=== PATIENT | female | born 2000 | race Caucasian/White ===

== ENCOUNTER → 2024-05-11 16:20 | Outpatient (CLI) | payer OTHER, SELFPAY ==
--- NOTE | 2024-05-11 16:22 | DI.US.S_ITS ---
PROCEDURE: US OB <= 14 WEEKS FETUS INDICATIONS: Dating and viability, irregular menses OUTSIDE/PRIOR DATING DATA: Last menstrual period (LMP): 02/28/2024 LMP-based estimated date of delivery (JODY): 12/04/2024. First dating scan (date and location): 05/11/2024. Estimated date of delivery (JODY) from first dating scan: 12/08/2024. TECHNIQUE: Real-time scanning was performed of the fetus and maternal pelvic organs, with image documentation. COMPARISON: None. FINDINGS: Embryo: pole is identified with crown-rump length measuring 3.0 centimeters, consistent with 9 weeks and 6 days. Heart rate: 171 beats per minute Maternal organs: Right ovary is normal in appearance. Left ovary is not well seen. IMPRESSION: Single live intrauterine consistent with 9 weeks and 6 days. We strive to produce accurate, complete, and clear reports of imaging services. To assist us in improving patient care, this report was composed using standard report templates and voice recognition software. Therefore, it may contain abnormal punctuation, insertions and/or omissions. Occasional wrong-word or sound-alike substitutions may occur. Though we review the report and make efforts to correct it, we do recommend that the report be read carefully in proper context to recognize any text inaccuracies. Dictated by: Ritchie Ayala M.D. on 05/11/2024 at 17:01 Approved by: Ritchie Ayala M.D. on 05/11/2024 at 17:03
== END ==
PROVIDERS: Referring Provider Family Medicine; Visit Provider Family Medicine
DX: Z34.81 Encounter for supervision of other normal pregnancy, first trimester (principal); Z3A.09 9 weeks gestation of pregnancy
CPT/HCPCS: 76801

== ENCOUNTER → 2024-05-27 12:51 | Outpatient (CLI) | payer OTHER, SELFPAY ==
[2024-05-27 13:27] LABS: Add Manual Diff / Slide Review NO; Basophils Absolute Auto 0 /uL (0-100); Basophils Percent Auto 0.4 % (0-2); Eosinophils Absolute Auto 0 /uL (0-450); Eosinophils Percent Auto 0.3 % (2-4); Hematocrit 37.5 % (36-46); Hemoglobin 13.1 g/dL (12.0-16.0); Lymphocytes Absolute Auto 1800 /uL (1100-4500); Lymphocytes Percent Auto 17.4 % (25-40); Mean Corpuscular HGB Conc 34.8 % (30-36); Mean Corpuscular Hemoglobin 28.7 PG (26-34); Mean Corpuscular Volume 82.6 fL (80-100); Monocytes Absolute Auto 600 /uL (0-900); Monocytes Percent Auto 5.5 % (3-14); Neutrophils Absolute Auto 7700 /uL (1500-7000); Neutrophils Percent Auto 76.4 % (50-75); Platelet Count 287 X10^3/uL (150-400); Red Blood Cell Count 4.54 X10^6/uL (4.0-5.2); Red Cell Distribution Width 13.7 % (11.6-14.8); White Blood Cell Count 10.1 X10^3/uL (4.5-11.0)
[2024-05-27 13:36] LABS: Hemoglobin A1C% w Est Avg Glu 4.8 % (4.0-6.0)
[2024-05-27 13:51] LABS: Appearance Urine UA CLEAR; Bilirubin Urine UA NEGATIVE (NEGATIVE); Color Urine UA YELLOW; Glucose Urine UA NEGATIVE (Negative); Ketones Urine UA TRACE (NEGATIVE); Leukocyte Esterase Urine UA NEGATIVE (NEGATIVE); Nitrite Urine UA NEGATIVE (Negative); Occult Blood Urine UA TRACE-INTACT (Negative); Protein Urine UA NEGATIVE (Negative); Specific Gravity Urine UA >=1.030 (1.000-1.035); Urobilinogen Urine UA 0.2 E.U./dL (0.2)
[2024-05-27 13:54] LABS: Alanine Aminotransferase 22 IU/L (<35); Albumin 4.2 g/dL (3.5-5.0); Albumin Globulin Ratio 1.4 (1.0-2.8); Alkaline Phosphatase 52 U/L (38-126); Aspartate Aminotransferase 53 IU/L (14-36); BUN Creatinine Ratio 30.3 (6-22); Bilirubin Total 0.7 mg/dL (0.2-1.3); Blood Urea Nitrogen 10 mg/dL (7-17); Calcium 9.7 mg/dL (8.4-10.2); Carbon Dioxide 22 mmol/L (22-32); Chloride 104 mmol/L (98-107); Estimated Glomerular Filt Rate > 60 mL/min (>60); Glucose 113 mg/dL (70-100); Potassium 4.1 mmol/L (3.4-5.1); Sodium 133 mmol/L (137-145); Total Protein 7.2 g/dL (6.3-8.2)
[2024-05-27 13:55] LABS: HEMOLYSIS 90 (0-50)
[2024-05-27 13:57] LABS: pH Urine UA 5.5 (4.5-8.0)
[2024-05-28 06:36] LABS: RPR Screen Non Reactive (Non Reactive)
[2024-05-28 08:11] LABS: Varicella IgG Antibody Non Reactive (Non Reactive)
[2024-05-30 15:47] LABS: Hepatitis B Surface Antigen NEGATIVE s/c (NEGATIVE); Rubella Antibody IgG 69.3 IU/mL (>15)
[2024-05-30 16:10] LABS: HIV 1 & 2 Ab/Ag 4th Gen Combo NEGATIVE (NEGATIVE); Hep C Virus Ab w/Reflex Quant NEGATIVE s/c (NEGATIVE)
== END ==
LOC: LAB 12:52
PROVIDERS: Referring Provider Family Medicine; Visit Provider Family Medicine
DX: O99.210 Obesity complicating pregnancy, unspecified trimester (principal); R79.89 Other specified abnormal findings of blood chemistry; E28.2 Polycystic ovarian syndrome; Z3A.12 12 weeks gestation of pregnancy; E66.9 Obesity, unspecified
CPT/HCPCS: 36415; 80053; 80055; 81003; 83036; 86787; 86803; 86850; 86900; 86901; 87086; 87389

== ENCOUNTER → 2024-07-22 13:36 | Outpatient (CLI) | payer OTHER, SELFPAY ==
--- NOTE | 2024-07-22 13:36 | DI.US.S_ITS ---
PROCEDURE: US OB >= 14 WEEKS FETUS INDICATIONS: growth OUTSIDE/PRIOR DATING DATA: Last menstrual period (LMP): 02/18/24. LMP-based estimated date of delivery (JODY): 12/04/24. First dating scan (date and location): 05/11/24. Estimated date of delivery (JODY) from first dating scan: 12/08/24. The calculations are made using the working JODY of 12/04/24. TECHNIQUE: Real-time scanning was performed of the fetus, with image documentation and biometric measurements. Endovaginal scanning: No COMPARISON: None. FINDINGS: General: A single living intrauterine gestation is present. Presentation: Breech. Placenta: Placental position is anterior , without previa. Amniotic fluid index: 13.1 cm, normal range is 5-24 cm. Single deepest vertical pocket is 4.5 cm. heart rate: 144 beats per minute. Maternal cervical canal: Closed and 3.4 cm long. Normal lower limit is 2.5 cm. biometrics: Biparietal diameter: 5.0 cm, 21 weeks one day Head circumference: 18.2 cm, 20 weeks four days Abdominal circumference: 16.0 cm, 21 weeks one day Femur length: 3.1 cm, 19 weeks five days Clinically estimated gestational age: 20 weeks five days Composite gestational age from present scan: 20 weeks five days Estimated weight and percentile: 358 g, 34th percentile Anatomic survey: Neuro: Ventricles are non-dilated at less than 10 mm. Cisterna magna is normal at 3-11 mm. Cerebellum is normal in size and morphology. Nuchal skin fold: Normal at less than 6 mm between 14-21 weeks gestational age. Face: Nose and lips, facial profile are normal. Spine: No evidence for spina bifida. Heart: 4-chambered heart is present, with normal ventricular outflow tracts. Diaphragm: Diaphragm is intact. Stomach: Left-sided stomach is present. Kidneys: No hydronephrosis. Normal is less than 5 mm in 2nd trimester, less than 7 mm in 3rd trimester. Cord: 3-vessel cord has orthotopic insertion. Bladder: Normal in size. Extremities: All 4 extremities identified. IMPRESSION: Single live intrauterine with estimated weight at the 34th percentile. Symmetric growth and normal anatomy. Anterior placenta. Closed cervix and normal amniotic fluid volume. We strive to produce accurate, complete, and clear reports of imaging services. To assist us in improving patient care, this report was composed using standard report templates and voice recognition software. Therefore, it may contain abnormal punctuation, insertions and/or omissions. Occasional wrong-word or sound-alike substitutions may occur. Though we review the report and make efforts to correct it, we do recommend that the report be read carefully in proper context to recognize any text inaccuracies. Dictated by: Kenzie Frye M.D. on 07/22/2024 at 22:10 Approved by: Kenzie Frye M.D. on 07/22/2024 at 22:13
== END ==
PROVIDERS: Referring Provider Family Medicine; Visit Provider Family Medicine
DX: O43.892 Other placental disorders, second trimester (principal); Z3A.20 20 weeks gestation of pregnancy
CPT/HCPCS: 76811

== ENCOUNTER → 2024-08-12 16:28 | Outpatient (CLI) | payer OTHER, SELFPAY ==
[2024-08-12 18:13] LABS: Hematocrit 34.8 % (36-46); Hemoglobin 11.7 g/dL (12.0-16.0); Mean Corpuscular HGB Conc 33.6 % (30-36); Mean Corpuscular Hemoglobin 28.6 PG (26-34); Mean Corpuscular Volume 85.1 fL (80-100); Platelet Count 260 X10^3/uL (150-400); Red Blood Cell Count 4.09 X10^6/uL (4.0-5.2); White Blood Cell Count 11.3 X10^3/uL (4.5-11.0)
[2024-08-12 18:27] LABS: GTT (PREG) 1 Hour PP 50gm Dose 169 mg/dL (76-139)
== END ==
LOC: LAB 16:29
PROVIDERS: Referring Provider Family Medicine; Visit Provider Family Medicine
DX: Z34.80 Encounter for supervision of other normal pregnancy, unspecified trimester (principal)
CPT/HCPCS: 36415; 82950; 85027

== ENCOUNTER 2024-08-28 09:14 | Emergency (ER) | payer OTHER, SELFPAY ==
[2024-08-28] VITALS (13 sets, daily range): BP systolic 108–120; BP diastolic 52–58; PULSE 109–132; RESP 20; TEMP 37.8; O2SAT 91–97; BMI 43.0
[2024-08-28] MEDS: ONDANSETRON 4 MG/2 ML INJ IV (09:52)
[2024-08-28] MEDS: ACETAMINOPHEN IV 1,000 MG/100 ML VIAL 400 MG IV (09:53)
[2024-08-28] MEDS: SODIUM CHLORIDE 0.9% 1,000 ML 1000 ML IV (09:53)
[2024-08-28 10:01] LABS: Add Manual Diff / Slide Review NO; Basophils Absolute Auto 0 /uL (0-100); Basophils Percent Auto 0.4 % (0-2); Eosinophils Absolute Auto 0 /uL (0-450); Hematocrit 34.1 % (36-46); Hemoglobin 11.6 g/dL (12.0-16.0); Lymphocytes Absolute Auto 300 /uL (1100-4500); Lymphocytes Percent Auto 3.3 % (25-40); Mean Corpuscular HGB Conc 34.1 % (30-36); Mean Corpuscular Hemoglobin 28.9 PG (26-34); Mean Corpuscular Volume 84.7 fL (80-100); Monocytes Absolute Auto 300 /uL (0-900); Neutrophils Absolute Auto 9200 /uL (1500-7000); Neutrophils Percent Auto 93.3 % (50-75); Platelet Count 210 X10^3/uL (150-400); Red Blood Cell Count 4.02 X10^6/uL (4.0-5.2); Red Cell Distribution Width 14.1 % (11.6-14.8); White Blood Cell Count 9.9 X10^3/uL (4.5-11.0)
--- NOTE | 2024-08-28 10:07 | ED.NAVMDI ---
HPI - Nausea/Vomiting/Diarrhea General Chief complaint: Nausea/Vomiting/Diarrhea Stated complaint: vomiting, can't keep anything down Time Seen by Provider: 08/28/24 09:49 History of Present Illness HPI Narrative: Patient is a 24-year-old female currently 26 weeks presenting today with fever body aches back pain vomiting. She reports that she has been throwing up for the last 2 days. She has had fever 101. She currently has a temp of 100?. 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 Denies any sort of vaginal bleeding but does have some pelvic floor pressure. Related Data Home Medications Medication Instructions Recorded Confirmed vitamin-ferrous sulfate tab PO 05/23/24 08/26/24 27 mg iron-folic acid 0.8 mg tablet Previous Rx's Medication Instructions Recorded cephalexin 500 mg capsule 500 mg PO BID 5 days #10 caps 08/28/24 ondansetron 4 mg disintegrating 4 mg PO Q8H PRN nausea and 08/28/24 tablet vomiting #10 tabs Allergies Allergy/AdvReac Type Severity Reaction Status Date / Time amoxicillin [AMOXICILLIN] Allergy Unknown Rash Verified 08/26/24 16:28 Patient History Medical History Leg fracture (~2004) Surgical History History of removal of skin mole [place] teeth extracted History of hand surgery History of appendectomy Family History Grandmother Breast cancer Brain cancer Lung cancer Diabetes mellitus Hypertension Heavy smoker Mother Hypertension Thyroid disease Menorrhagia Aunt Degenerative disc disease Hypertension Autoimmune disease Grandmother Breast cancer Grandfather Alzheimer's disease Father Hypertension Brother Asthma Brother Psoriasis Social History marital status: unmarried,living together number of children: 0 household members: significant other lives independently: Yes caregiver/support person: No housing: house pets and animals: No education level: college occupational status: employed current occupational exposures/hazards: No special pam needs: No travel history: over 6 months ago seatbelt use: always water heater temp set < 120 deg: Yes working smoke detector in home: Yes fire extinguisher in home: Yes carbon monox detector in home: Yes firearms in home: No do you feel safe at home: Yes Smoking Status: Never smoker second hand exposure: Yes (s/o vapes outside the house) alcohol intake: former substance use type: other during the past year weight has: other well-balanced diet: about half the time daily servings fruits/ve-4 caffeine: Yes (aware of 200mg limit) Type(s) of exercise: walking Smoking Status: Never smoker Exam Initial Vital Signs Initial Vital Signs: Vital Signs Temperature 100.1 F H 08/28/24 09:25 Pulse Rate 132 H 08/28/24 09:25 Respiratory Rate 20 08/28/24 09:25 Blood Pressure 108/57 L 08/28/24 09:25 Pulse Oximetry 95 08/28/24 09:25 Oxygen Delivery Method Room Air 08/28/24 09:25 GENERAL: Alert 24-year-old female and in no acute distress. HEENT: Head atraumatic,EOMI, pupils reactive, face symmetric, moist mucous membranes CARDIOVASCULAR: Regular rate and rhythm without murmurs, rubs or gallops. RESPIRATORY: Breath sounds equal bilaterally, no wheezes rales or rhonchi. ABDOMEN: Soft, nontender. Normoactive bowel sounds all 4 quadrants. No guarding or rebound. EXTREMITIES: Normal range of motion, no clubbing or edema. Neurovascularly intact NEUROLOGICAL: Alert and oriented x4.Normal gait and speech. Cranial nerves II through XII grossly intact. SKIN: Warm, dry, no laceration, no petechiae, no rashes or lesions. Course Orders Ordered: ED Orders 08/28/24 09:30 Covid-19 + FLU A/B + RSV - PCR Stat 08/28/24 09:45 CBC Auto Diff [Complete Blood Count AUTO DIFF] Stat CMP [Comprehensive Metabolic Panel] Stat Lactate (Lactic Acid) Stat 08/28/24 10:35 US OB limited Stat 08/28/24 11:31 Urine Culture Stat Urine Microscopic Stat Discontinued Medications Cephalexin HCl (Cephalexin 250 Mg Capsule) 500 mg PO NOW ONE Stop: 08/28/24 13:01 Last Admin: 08/28/24 13:10 Dose: 500 mg Documented By: ANNA Sodium Chloride (Normal Saline 0.9%) 1,000 mls @ 1,000 mls/hr IV BOLUS ONE Stop: 08/28/24 10:34 Last Infusion: 08/28/24 12:09 Dose: Infused Documented By: Admin: 08/28/24 09:53 Dose: 1,000 mls/hr Documented By: ANNA Acetaminophen (Ofirmev) 1,000 mg in 100 mls @ 400 mls/hr IV NOW ONE Stop: 08/28/24 09:49 Last Infusion: 08/28/24 10:38 Dose: Infused Documented By: Admin: 08/28/24 09:53 Dose: 400 mls/hr Documented By: ANNA Lactated Ringer's (Lactated Ringers) 1,000 mls @ 1,000 mls/hr IV BOLUS ONE Stop: 08/28/24 12:52 Last Infusion: 08/28/24 13:17 Dose: Infused Documented By: Admin: 08/28/24 12:09 Dose: 1,000 mls/hr Documented By: GUEVARA Ondansetron HCl (Ondansetron 4 Mg/2 Ml Inj) 4 mg IV NOW ONE Stop: 08/28/24 09:36 Last Admin: 08/28/24 09:52 Dose: 4 mg Documented By: ANNA Vital Signs Vital signs: Vital Signs - 8 hr 08/28/24 09:25 08/28/24 09:32 08/28/24 09:33 Temperature 100.1 F H Pulse Rate 132 H 129 H Respiratory Rate 20 Blood Pressure 108/57 L 118/57 L Pulse Oximetry 95 93 Oxygen Delivery Method Room Air 08/28/24 09:33 08/28/24 10:00 08/28/24 10:00 Temperature Pulse Rate 125 H 124 H Respiratory Rate Blood Pressure 117/53 L Pulse Oximetry 95 93 Oxygen Delivery Method 08/28/24 10:30 08/28/24 10:30 08/28/24 11:15 Temperature Pulse Rate 118 H Respiratory Rate Blood Pressure 110/52 L Pulse Oximetry 91 94 Oxygen Delivery Method 08/28/24 11:16 08/28/24 11:16 08/28/24 11:30 Temperature Pulse Rate 122 H 113 H Respiratory Rate Blood Pressure 113/55 L Pulse Oximetry 93 94 Oxygen Delivery Method 08/28/24 11:30 08/28/24 12:00 08/28/24 12:13 Temperature Pulse Rate 117 H Respiratory Rate Blood Pressure 113/58 L 114/55 L Pulse Oximetry 92 Oxygen Delivery Method 08/28/24 12:13 08/28/24 12:30 08/28/24 12:30 Temperature Pulse Rate 113 H 109 H Respiratory Rate Blood Pressure 120/57 L Pulse Oximetry 95 95 Oxygen Delivery Method 08/28/24 13:00 08/28/24 13:10 08/28/24 13:10 Temperature Pulse Rate 109 H 112 H Respiratory Rate Blood Pressure 109/53 L Pulse Oximetry 96 97 Oxygen Delivery Method MDM - Nausea/Vomiting/Diarrhea Lab Data 08/28/24 09:45 08/28/24 09:45 Labs: Lab Results 08/28/24 08/28/24 08/28/24 Range/Units 09:30 09:45 11:31 WBC 9.9 (4.5-11.0) X10^3/uL RBC 4.02 (4.0-5.2) X10^6/uL Hgb 11.6 L (12.0-16.0) g/dL Hct 34.1 L (36-46) % MCV 84.7 (80-100) fL MCH 28.9 (26-34) PG MCHC 34.1 (30-36) % RDW 14.1 (11.6-14.8) % Plt Count 210 (150-400) X10^3/uL Neut % (Auto) 93.3 H (50-75) % Lymph % (Auto) 3.3 L (25-40) % [place] % (Auto) 3.0 (3-14) % Eos % (Auto) 0.0 L (2-4) % Baso % (Auto) 0.4 (0-2) % Neut # (Auto) 9200 H (7776-9350) /uL Lymph # (Auto) 300 L (6205-8750) /uL [place] # (Auto) 300 (0-900) /uL Eos # (Auto) 0 (0-450) /uL Baso # (Auto) 0 (0-100) /uL Sodium 130 L (137-145) mmol/L Potassium 3.4 (3.4-5.1) mmol/L Chloride 103 (98-107) mmol/L Carbon Dioxide 16 L (22-32) mmol/L BUN 4 L (7-17) mg/dL Creatinine 0.32 L (0.52-1.04) mg/dL Estimated GFR > 60 (>60) mL/min BUN/Creatinine Ratio 12.5 (6-22) Glucose 115 H (70-100) mg/dL Lactate 0.9 (0.7-2.1) mmol/L Calcium 8.9 (8.4-10.2) mg/dL Total Bilirubin 0.7 (0.2-1.3) mg/dL AST 32 (14-36) IU/L ALT 20 (<35) IU/L Alkaline Phosphatase 53 (38-126) U/L Total Protein 6.9 (6.3-8.2) g/dL Albumin 3.7 (3.5-5.0) g/dL Globulin 3.2 (1.7-4.1) g/dL Albumin/Globulin Ratio 1.2 (1.0-2.8) Urine RBC 0-1/hpf (0-5/HPF) Urine WBC 1-5/hpf (0-5/HPF) Ur Squamous Epith Cells 0-1 /hpf (0-5/HPF) Urine Bacteria Moderate (10-30) H (None) Urine Mucus 1+ H (Negative) Ur Culture Indicated? Specimen cultured Vol Urine Centrifuged 10ml (spun) SARS-CoV-2 (PCR) Negative (Negative) Influenza A (RT-PCR) Flu a positive H (NEGATIVE) Influenza B (RT-PCR) Flu b negative (NEGATIVE) RSV (PCR) Negative (Negative) Urine Dip Bedside Urine Glucose Negative Bedside Urine Bilirubin - Negative Bedside Urine Ketone +++ 80 Urine Specific [place] 1.030 Bedside Urine Occult Blood - Negative Bedside Urine pH 6.0 Bedside Urine Protein + 30 Bedside Urine Urobilinogen - Negative Bedside Urine Nitrite - Negative Bedside Urine Leukocytes - Negative Esterase Imaging Data US - OB: Radiologist's Impression: PROCEDURE: US OB LIMITED INDICATIONS: pain 26 weeks OUTSIDE/PRIOR DATING DATA: Last menstrual period (LMP): February 28, 2024. LMP-based estimated date of delivery (JODY): December 04, 2024. First dating scan (date and location): May 11, 2024. Estimated date of delivery (JODY) from first dating scan: December 08, 2024. TECHNIQUE: Real-time scanning was performed of the fetus, with image documentation. Endovaginal scanning: Not performed COMPARISON: [facility], US, US OB >= 14 WEEKS FETUS, 07/22/2024, 13:48. FINDINGS: A single living intrauterine gestation is present. Presentation: Vertex. Placenta: Placental position is anterior, without previa. Amniotic fluid index: 14.4 cm, normal range is 5-24 cm. Single deepest vertical pocket is 5.6 cm. heart rate: 160 beats per minute. Maternal cervical canal: 3.3 cm long. Normal lower limit is 2.5 cm. Clinically estimated gestational age: 26 weeks and 0 days IMPRESSION: Single living intrauterine gestation at approximately 26 weeks and 0 days gestational age. No sonographic abnormalities identified to explain patient's symptoms. Dictated by: Kyler Jade M.D. on 08/28/2024 at 11:23 MDM Narrative Medical decision making narrative: Patient 24-year-old female presenting today with nausea vomiting abdominal pain and back pain. She was found to be tachycardic with low-grade temp of 100?. OB nurse in ED to do heart tones states that patient not a candidate for NST. Blood work reviewed she was no leukocytosis WBCs 9.9 hemoglobin 11 point hematocrit 34.1 Chemistry panel does suggest some mild dehydration sodium is 130 potassium 3.4 chloride 103 bicarb is 16 BUN 4 creatinine 0.3 Lactate 0.9 Urinalysis negative for nitrates and leukocytes but does have 30+ protein micro does show moderate bacteria with 0-1 squamous cells and 1-5 WBCs, Patient is not hypertensive no evidence of preeclampsia except for proteinuria Viral panel positive for influenza Patient received 2 L of IV fluids along with IV Tylenol overall feeling much better. She has been ambulatory to the restroom Ultrasound is overall reassuring shows an IUP Discharge Plan Departure Patient Disposition: Home Clinical Impression: Influenza A Instructions: DI for Influenza -- Adult Activity Restrictions/Additional Instructions: *You have been diagnosed with influenza a *What to do: You may also have a bladder infection go ahead and treat you *Continue to take medications as directed Keflex 500 mg twice a day for 5 days Tylenol 1000 mg every 6 hours for fever and pain Zofran 4 mg every 8 hours for nausea or vomiting *Follow up with your primary care provider in 2-3 days or call [phone] *Return to ER if you should have persistent vomiting [or] any new, worsening or concerning symptoms Prescriptions: New cephalexin 500 mg capsule 500 mg PO BID 5 Days Qty: 10 0RF ondansetron 4 mg tablet,disintegrating 4 mg PO Q8H PRN (Reason: nausea and vomiting) Qty: 10 0RF No Action vit-ferrous sulfat-FA 27 mg iron- 0.8 mg tablet PO Referrals: Tomasa Zaidi MD [Primary Care Provider] - Stand Alone Forms: Patient Portal/API/Survey
[2024-08-28 10:12] LABS: Alanine Aminotransferase 20 IU/L (<35); Albumin 3.7 g/dL (3.5-5.0); Albumin Globulin Ratio 1.2 (1.0-2.8); Alkaline Phosphatase 53 U/L (38-126); Aspartate Aminotransferase 32 IU/L (14-36); BUN Creatinine Ratio 12.5 (6-22); Bilirubin Total 0.7 mg/dL (0.2-1.3); Blood Urea Nitrogen 4 mg/dL (7-17); Calcium 8.9 mg/dL (8.4-10.2); Carbon Dioxide 16 mmol/L (22-32); Chloride 103 mmol/L (98-107); Estimated Glomerular Filt Rate > 60 mL/min (>60); Globulin 3.2 g/dL (1.7-4.1); Glucose 115 mg/dL (70-100); HEMOLYSIS < 15 (0-50); Potassium 3.4 mmol/L (3.4-5.1); Sodium 130 mmol/L (137-145); Total Protein 6.9 g/dL (6.3-8.2)
[2024-08-28 10:13] LABS: Lactate (Lactic Acid) 0.9 mmol/L (0.7-2.1)
--- NOTE | 2024-08-28 10:35 | DI.US.S_ITS ---
PROCEDURE: US OB LIMITED INDICATIONS: pain 26 weeks OUTSIDE/PRIOR DATING DATA: Last menstrual period (LMP): February 28, 2024. LMP-based estimated date of delivery (JODY): December 04, 2024. First dating scan (date and location): May 11, 2024. Estimated date of delivery (JODY) from first dating scan: December 08, 2024. TECHNIQUE: Real-time scanning was performed of the fetus, with image documentation. Endovaginal scanning: Not performed COMPARISON: [facility], OB >= 14 WEEKS FETUS, 07/22/2024, 13:48. FINDINGS: A single living intrauterine gestation is present. Presentation: Vertex. Placenta: Placental position is anterior, without previa. Amniotic fluid index: 14.4 cm, normal range is 5-24 cm. Single deepest vertical pocket is 5.6 cm. heart rate: 160 beats per minute. Maternal cervical canal: 3.3 cm long. Normal lower limit is 2.5 cm. Clinically estimated gestational age: 26 weeks and 0 days IMPRESSION: Single living intrauterine gestation at approximately 26 weeks and 0 days gestational age. No sonographic abnormalities identified to explain patient's symptoms. Dictated by: Kyler Jade M.D. on 08/28/2024 at 11:23 Approved by: Kyler Jade M.D. on 08/28/2024 at 11:26
[2024-08-28 10:37] LABS: Influenza A - CEPHEID Flu A POSITIVE (NEGATIVE); Influenza B - CEPHEID Flu B NEGATIVE (NEGATIVE); Respiratory Syncytial Virus Negative (Negative)
[2024-08-28 10:40] LABS: COVID-19 CEPHEID 4-PLEX PCR Negative (Negative)
[2024-08-28 12:07] LABS: RBC Urine 0-1/HPF (0-5/HPF); Urine Volume 10mL (spun); WBC Urine 1-5/HPF (0-5/HPF)
[2024-08-28 12:08] LABS: Bacteria Urine Moderate (10-30); Culture Indicated Urine Specimen Cultured; Mucus Urine 1+ (Negative); Squamous Epithelial Cell Urine 0-1 /HPF (0-5/HPF)
[2024-08-28] MEDS: LACTATED RINGERS 1,000 ML 1000 ML IV (12:09)
[2024-08-28] MEDS: cephALEXin 250 MG CAPSULE 500 MG PO (13:10)
== END 2024-08-28 13:18 | disposition home or self-care (01) ==
PROVIDERS: Emergency Provider Emergency Medicine; PCP Family Medicine
DX: O99.512 Diseases of the respiratory system complicating pregnancy, second trimester (principal); J10.1 Influenza due to other identified influenza virus with other respiratory manifestations; O99.891 Other specified diseases and conditions complicating pregnancy; R00.0 Tachycardia, unspecified; Z3A.26 26 weeks gestation of pregnancy
CPT/HCPCS: 0241U; 36415; 76815; 80053; 81003; 81015; 83605; 85025; 87086; 96361; 96365; 99284; J0131; J2405

== ENCOUNTER → 2024-09-15 08:03 | Outpatient (CLI) | payer OTHER, SELFPAY ==
[2024-09-15 09:23] LABS: Glucose Fasting Gestational 96 mg/dL (76-95)
[2024-09-15 10:15] LABS: Glucose 1 Hour Gest 199 mg/dL (76-180)
[2024-09-15 11:28] LABS: Glucose 2 Hour Gest 154 mg/dL (76-155)
[2024-09-15 11:47] LABS: Glucose Tol Interp,Gestational INTERPRETATION
[2024-09-15 13:49] LABS: Glucose 3 Hour Gest 128 mg/dL (76-140)
== END ==
PROVIDERS: PCP Family Medicine; Referring Provider Family Medicine; Visit Provider Family Medicine
DX: Z34.80 Encounter for supervision of other normal pregnancy, unspecified trimester (principal)
CPT/HCPCS: 82951; 82952

== ENCOUNTER → 2024-09-23 07:32 | Outpatient (CLI) | payer OTHER, SELFPAY ==
--- NOTE | 2024-09-23 07:57 | DIAB.GDA ---
Initial Gestational Diabetes Assessment Name: Yoko Layton Date: 09/23/24 Time: [id number] Dx: Gestational Diabetes Provider: Dejuan JODY: 12/04/24 Weeks: 29-30 Yoko presents for initial visit. PMH significant for PCOS. Reports FH of T2DM with maternal grandmother. During having a protein aversion, include poultry, dairy (some are ok, ie milk/cheese sticks), eggs. Ok proteins: some red meats (ground, sausage), some protein shakes (but taste too sweet). Works at [employer] Diet Recall: 540a: bagel with cream cheese, scoop of PB, banana +/- orange 1030a: mixed nuts, banana or orange, 1-2 cheese sticks 12p: frozen meal, mixed nuts, orange 215p: same as 1030a 5-530a: 1c uncooked chickpea pasta, cheese, veggies middle night snack sometimes: orange or cheese water 3L coffee and milk on weekends or tea sometimes juice Anthropometrics: Ht: 67 Wt: 274# 09/16/24 Prepregnancy wt: 270# Physical Activity: Walking 7 days per week 10-30 min. Self-Monitoring Blood Glucose: Checking FBG and 1 hour pc (checking only after breakfast and dinner, trying to figure out how to check at lunch with work). 3/5 elevated FBG and 4/5 elevated pc breakfast. pre dinner readings in goal and 1/4 elevated pc dinner readings. Hoping with reduced carb portions some numbers should improved. Her FBG have improved over the last few days. One significantly elevated reading after dinner was during an evening with nausea and emesis resulting in snacking. Date Pre Post Pre Post Pre Post HS 09/19 96 158 96 118 09/20 101 145 92 136 09/21 96 121 81 112 09/22 93 176 72 184 09/23 90 146 Diabetes Medications: none Pertinent Labs: HgA1c; 4.8% 05/2024 Screen: 169mg/dl H 07/2024 OGTT: 96 H, 199H, 154, 128 09/2024 Nutrition Rx: Carbohydrates: Meal: 45-60g lunch and dinner; 30g breakfast Snack: 15-30g Nutrition Diagnosis: Altered nutrition related lab value r/t GDM dx aeb recent OGTT Excessive CHO intake r/t nutrition knowledge deficit aeb diet recall and elevated BG readings Self monitoring deficit r/t needing to discuss schedule at work to accommodate lunch pc check aeb pt report and BG log Intervention: This participant was very receptive. Provided appropriate educational handouts. Discussed the following topics: GDM pathophysiology and impact of hyperglycemia on mom and baby Risk for T2DM for mom and baby in the future Ways to reduce risk T2DM Plate Method, meal timing, carb counting, pairing macronutrients and spreading out CHO for better BG management Blood glucose goals (FBG: <95 and 1 hour <140 mg/dL); importance of checking 4x per day (FBG and pc) Impact of macronutrients on blood glucose Recommended servings for carbohydrates at meals and snacks Brainstormed appropriate meal plan based on her food preferences Role of physical activity and following provider guidelines for safety Goals: Cut carbs at breakfast down to 30g - new Avoid sugar beverages- new Check BG after lunch (instead of pre dinner) - new Follow-up: GUTIERREZ GONZALEZ follow-up in 4 days via messaging or phone to check BG and 2 weeks 1:1 Milana Pratt RDN, CARLOS Certified Diabetes Care and Curatorial Assistant T: [phone] F: [phone] [email or web address] Thank you for this referral
== END ==
LOC: DIET 07:32
PROVIDERS: PCP Family Medicine; Referring Provider Family Medicine
DX: O24.419 Gestational diabetes mellitus in pregnancy, unspecified control (principal); O99.283 Endocrine, nutritional and metabolic diseases complicating pregnancy, third trimester; E28.2 Polycystic ovarian syndrome; Z3A.29 29 weeks gestation of pregnancy; Z83.3 Family history of diabetes mellitus
CPT/HCPCS: 97802

== ENCOUNTER → 2024-10-07 08:00 | Outpatient (CLI) | payer OTHER, SELFPAY ==
--- NOTE | 2024-10-07 08:03 | DIAB.GDFU ---
Follow-up Gestational Diabetes Assessment Name: Yoko Layton Date: 10/07/24 Time: 8-830a Dx: Gestational Diabetes Provider: Dejuan JODY: 12/04/24 Weeks: 31-32 Yoko presents for virtual follow-up GDM visit using [employer] Portal. PMH significant for PCOS. Reports FH of T2DM with maternal grandmother. RD messaged last week (09/27/24) for BG review. had 2 elevated FBG over five days and had OB visit that week (09/30/24). This week FBG are often elevated or barely in range. Would likely benefit from insulin therapy. States she feels ok with this decision. She is familiar with insulin as her mother in law has T1DM and they have discussed DM. Reports very supportive spouse. Reports reduced portions in general due to feeling as though baby is taking up space. Works at [employer] Diet Recall: 540a: carb balanced tortilla with PB or cheese +/- fruit 1030a: mixed nuts, half banana or orange, 1 cheese sticks 12p: Salads with protein with fruit, orange or banana, and cheese stick 215p: same as 1030a 5-530a: 1c uncooked chickpea pasta, cheese, veggies OR salad with protein +/- fruit or veggies middle night snack less frequently now: cheese water 3L coffee and milk on weekends or tea Cut out juice. Tried no sugar added juice. Anthropometrics: Ht: 67 Wt: 280# 09/30/24 274# 09/16/24 Prepregnancy wt: 270# Physical Activity: Walking 7 days per week 10-30 min. Self-Monitoring Blood Glucose: Checking FBG and 1 hour pc. 09/16 elevations, which are significant. 2 in range numbers just barely in goal at 94mg/dl. Her morning meal is 30g or less and causing a 30-40 point change most mornings. Most postprandial numbers in goal. Seems hormones and poor sleep may be causing these elevations. After dinner on 09/30 was 136mg/dl. Ate take out that night, teriyaki with limited protein. She was concerned that her dinner may have impacted her 10/01 FBG. Declined CGM at this time. Date Pre Post Pre Post Pre Post HS 10/01 110 145 102 128 10/02 87 119 121 104 10/03 101 130 88 114 10/04 93 131 90 133 10/05 101 122 112 10/06 94 135 102 10/07 94 133 Diabetes Medications: none Pertinent Labs: HgA1c; 4.8% 05/2024 Screen: 169mg/dl H 07/2024 OGTT: 96 H, 199H, 154, 128 09/2024 Intervention: This participant was very receptive. Provided appropriate educational handouts. Discussed the following topics: Insulin injection technique, safety, and recommendations, she verbalized understanding Factors that impact FBG: insulin resistance, hormones, poor sleep, extended hyperglycemia overnight potentially Nutrition during Rule of 15 and s/s for low BG Goals: Cut carbs at breakfast down to 30g - met Avoid sugar beverages- met Check BG after lunch (instead of pre dinner) - met If rx'd insulin, pick remover and start- new Follow-up: GUTIERREZ GONZALEZ follow-up in one week. RD messaged OB provider regarding potential for insulin therapy. Milana Pratt RDN, CARLOS Certified Diabetes Care and [employer] T: [phone] F: [phone] [email or web address] Thank you for this referral
== END ==
LOC: DIET 08:00
PROVIDERS: PCP Family Medicine; Referring Provider Family Medicine
DX: O24.419 Gestational diabetes mellitus in pregnancy, unspecified control (principal); O99.283 Endocrine, nutritional and metabolic diseases complicating pregnancy, third trimester; E28.2 Polycystic ovarian syndrome; Z3A.31 31 weeks gestation of pregnancy; Z71.3 Dietary counseling and surveillance; Z83.3 Family history of diabetes mellitus
CPT/HCPCS: G0108

== ENCOUNTER → 2024-10-14 07:58 | Outpatient (CLI) | payer OTHER, SELFPAY ==
--- NOTE | 2024-10-14 07:59 | DIAB.GDFU ---
Follow-up Gestational Diabetes Assessment Name: Yoko Layton Date: 10/14/24 Time: 8-841t Dx: Gestational Diabetes Provider: Dejuan JODY: 12/04/24 Weeks: 32-33 Yoko presents for virtual follow-up GDM visit using Portal. PMH significant for PCOS. Insurance barriers with insulin access. Not started yet. Has worked this out and plans to picker / packer rx tomorrow. Denies any questions regarding insulin, injection technique, or treating lows. Sees OB today. Small portions due to feeling as though she has less room for food with growing baby. Some meals low in CHO and snacks missing carb portions. Diet Recall: 540a: carb balanced tortilla with PB or cheese +/- fruit 1030a: mixed nuts, 1 cheese sticks 12p: Salads with protein with fruit, orange or banana, and cheese stick 215p: same as 1030a 5-530a: 1c uncooked chickpea pasta, cheese, veggies OR salad with protein +/- fruit or veggies water 3L coffee and milk on weekends or tea Anthropometrics: Ht: 67 Wt: 280# 09/30/24 274# 09/16/24 Prepregnancy wt: 270# Physical Activity: Walking 7 days per week 10-30 min. Self-Monitoring Blood Glucose: Checking FBG and 1 hour pc. Recent elevated FBG. Declined CGM at this time. Date Pre Post Pre Post Pre Post HS 10/08 94 127 119 130 10/09 95 97 124 127 10/10 87 117 95 129 10/11 94 114 94 134 10/12 81 136 100 149 10/13 102 166 120 137 10/14 102 133 Date Pre Post Pre Post Pre Post HS 10/01 110 145 102 128 10/02 87 119 121 104 10/03 101 130 88 114 10/04 93 131 90 133 10/05 101 122 112 10/06 94 135 102 10/07 94 133 Diabetes Medications: 10u NPH HS--- not started yet Pertinent Labs: HgA1c; 4.8% 05/2024 Screen: 169mg/dl H 07/2024 OGTT: 96 H, 199H, 154, 128 09/2024 Nutrition Rx: Carbohydrates: Meal: 45g lunch and dinner; 30g breakfast (min 30g at meals) Snack: 30g Nutrition Diagnosis: Altered nutrition related lab value r/t GDM dx aeb recent OGTT Excessive CHO intake r/t nutrition knowledge deficit aeb diet recall and elevated BG readings-- improved Self monitoring deficit r/t needing to discuss schedule at work to accommodate lunch pc check aeb pt report and BG log-- improved Inadequate CHO intake for r/t limited appetite at this time aeb pt report and diet recall - new Intervention: This participant was very receptive. Provided appropriate educational handouts. Discussed the following topics: Carb recs during Insulin action Strategies for adding a little more carb during her day to meet needs Goals: If rx'd insulin, picker / packer and start- in progress Add fruit to snacks- new Follow-up: GUTIERREZ GONZALEZ follow-up in one week. Milana Pratt RDN, CARLOS Certified Diabetes Care and Bush Hog Operator T: [phone] F: [phone] [email or web address] Thank you for this referral
== END ==
PROVIDERS: PCP Family Medicine; Referring Provider Family Medicine
DX: O24.419 Gestational diabetes mellitus in pregnancy, unspecified control (principal); Z3A.32 32 weeks gestation of pregnancy; O99.283 Endocrine, nutritional and metabolic diseases complicating pregnancy, third trimester; E28.2 Polycystic ovarian syndrome; Z71.3 Dietary counseling and surveillance
CPT/HCPCS: 97803

== ENCOUNTER → 2024-10-19 16:07 | Outpatient (CLI) | payer OTHER, SELFPAY ==
--- NOTE | 2024-10-19 16:09 | DIAB.GDFU ---
Follow-up Gestational Diabetes Assessment Name: Yoko Layton Date: 10/19/24 Time: 4-430p Dx: Gestational Diabetes Provider: Dejuan JODY: 12/04/24 Weeks: 33-34 Yoko presents for virtual follow-up GDM visit using [employer] Portal. PMH significant for PCOS. Able to snack a little more through the day, instead of larger meals. Adding fruit to snacks as previously discussed. Eating out more frequently while on Spring break. Had noodles with extra protein and BG were in goal. Overall, no questions or concerns. Declined CGM again today. Comfortable with finger sticks. Understands low BG precautions. Anthropometrics: Ht: 67 Wt: 285# 10/14/24 280# 09/30/24 274# 09/16/24 Prepregnancy wt: 270# Physical Activity: Walking 7 days per week 10-30 min. Self-Monitoring Blood Glucose: Checking FBG and 1 hour pc. Since starting on HS insulin most FBG in goal. Self titrated to 12u after one elevated BG of 103 and a borderline 94mg/dl. Discussed recs for titration prn. Date Pre Post Pre Post Pre Post HS 10/14 98 10/15 103 137 124 134 started insulin HS 10/16 103 154 95 118 10/17 83 113 139 107 10/18 94 119 114 10/19 90 103 118 Date Pre Post Pre Post Pre Post HS 10/08 94 127 119 130 10/09 95 97 124 127 10/10 87 117 95 129 10/11 94 114 94 134 10/12 81 136 100 149 10/13 102 166 120 137 10/14 102 133 Diabetes Medications: 12u NPH HS Pertinent Labs: HgA1c; 4.8% 05/2024 Screen: 169mg/dl H 07/2024 OGTT: 96 H, 199H, 154, 128 09/2024 Intervention: This participant was very receptive. Provided appropriate educational handouts. Discussed the following topics: HS insulin titration recs: if FBG >95mg/dl may increase by 2u q 2-3 days prn Hypoglycemia s/s and treatment review Nutrition recs CGM option vs SMBG Goals: If rx'd insulin, pickle processor and start-met Add fruit to snacks- met Message RD BG in one week- new Follow-up: RDN CDCES follow-up in one week via messaging and two weeks 1:1. Will cover GDM recs next visit. Milana Pratt RDN, [facility] Certified Diabetes Care and Recruiting Internship T: [phone] F: [phone] [email or web address] Thank you for this referral
== END ==
PROVIDERS: PCP Family Medicine; Referring Provider Family Medicine
DX: O24.414 Gestational diabetes mellitus in pregnancy, insulin controlled (principal); Z71.3 Dietary counseling and surveillance; O99.283 Endocrine, nutritional and metabolic diseases complicating pregnancy, third trimester; E28.2 Polycystic ovarian syndrome; Z3A.33 33 weeks gestation of pregnancy
CPT/HCPCS: G0108

== ENCOUNTER → 2024-11-04 09:05 | Outpatient (CLI) | payer OTHER, SELFPAY ==
--- NOTE | 2024-11-04 09:09 | DIAB.GDFU ---
Follow-up Gestational Diabetes Assessment Name: Yoko Layton Date: 11/04/24 Time: 504-320b Dx: Gestational Diabetes Provider: Dejuan JODY: 12/04/24 Weeks: 35 Yoko presents for virtual follow-up GDM visit using [employer] Portal. PMH significant for PCOS. After breakfast readings improved from last week messaging results. This week more elevated FBG, which she did try increasing HS insulin by 2 u and woke with a FBG of 77mg/dl. Reduced back to 14u and had an 88mg/dl this morning. Encouraged her to continue 14u unless FBG >95mg/dl, then can try increase by 1-2u conservative given 77mg/dl result earlier this week. She agreed. Endorses satiety with meals and most pc readings in goal. Anthropometrics: Ht: 67 Wt: 285# 10/28/24 285# 10/14/24 280# 09/30/24 274# 09/16/24 Prepregnancy wt: 270# Self-Monitoring Blood Glucose: Checking FBG and 1 hour pc. FBG 09/16 elevated, however when increasing HS insulin by 2u had FBG of 77mg/dl. Will trial 14u HS again and monitor for one week. Encouraged titration though if FBG are elevated. Missed a few lunch readings due to skipped meal after feeling unwell this week. Date Pre Post Pre Post Pre Post HS 10/29 83 134 127 110 10/30 97 120 102 127 10/31 92 121 96 131 11/01 99 130 150 11/02 108 108 95 120 16u HS 11/03 77 98 134 14u HS 11/04 88 126 Diabetes Medications: 14u NPH HS Pertinent Labs: HgA1c; 4.8% 05/2024 Screen: 169mg/dl H 07/2024 OGTT: 96 H, 199H, 154, 128 09/2024 Intervention: This participant was very receptive. Provided appropriate educational handouts. Discussed the following topics: HS insulin titration recs: if FBG >95mg/dl may increase by 1-3u FBG goals Benefits, resources, and nutrition for recommendations for nutrition and physical activity recommendations for T2DM risk reduction particularly with h/o PCOS OGTT at 6-12 weeks Checking blood sugars twice per week (goal: fasting <100 mg/dL and 2 hour pc <140 mg/dL) until 6 week check-up HgA1c q 1-3 years. Goals: Message RD BG in one week- continue Increase HS insulin by 1-2u if FBG >95 over the next couple mornings- new Follow-up: GUTIERREZ GONZALEZ follow-up in one week via messaging and two weeks 1:1. Milana Pratt RDN, CARLOS Certified Diabetes Care and Carpet Inspector T: [phone] F: [phone] [email or web address] Thank you for this referral
== END ==
LOC: DIET 09:07
PROVIDERS: PCP Family Medicine; Referring Provider Family Medicine
DX: O24.414 Gestational diabetes mellitus in pregnancy, insulin controlled (principal); Z71.3 Dietary counseling and surveillance; O99.283 Endocrine, nutritional and metabolic diseases complicating pregnancy, third trimester; E28.2 Polycystic ovarian syndrome; Z3A.35 35 weeks gestation of pregnancy
CPT/HCPCS: G0108

== ENCOUNTER → 2024-11-10 12:07 | Outpatient (CLI) | payer OTHER, SELFPAY ==
--- NOTE | 2024-11-10 12:08 | DI.US.S_ITS ---
PROCEDURE: US OB LIMITED INDICATIONS: growth US OUTSIDE/PRIOR DATING DATA: Last menstrual period (LMP): 02/18/2024. LMP-based estimated date of delivery (JODY): 12/04/2024. First dating scan (date and location): 05/11/2024. Estimated date of delivery (JODY) from first dating scan: 12/08/2024. The calculations are made using the clinical JODY of 12/04/2024. TECHNIQUE: Real-time scanning was performed of the fetus, with image documentation and biometric measurements. COMPARISON: [facility], , OB LIMITED, 08/28/2024, 10:42. FINDINGS: General: A single living intrauterine gestation is present. Presentation: Vertex. Placenta: Placental position is anterior , without previa. Amniotic fluid index: 11.3 cm, normal range is 5-24 cm. Single deepest vertical pocket is 4.1 cm. heart rate: 145 beats per minute. Maternal cervical canal: Not well seen. biometrics: Biparietal diameter: 9.2 cm 37 weeks 2 days Head circumference: 30.1 cm 37 weeks 5 days Abdominal circumference: 37.0 cm 41 weeks 0 days Femur length: 7.4 cm 37 weeks 5 days Clinically estimated gestational age: 36 weeks 4 days Composite gestational age from present scan: 38 weeks 3 days Estimated weight and percentile: 3783 g >99th percentile Other: Not applicable. IMPRESSION: Single live intrauterine with gestational age 38 weeks 3 days. growth is greater than the 99th percentile consistent with macrosomia. We strive to produce accurate, complete, and clear reports of imaging services. To assist us in improving patient care, this report was composed using standard report templates and voice recognition software. Therefore, it may contain abnormal punctuation, insertions and/or omissions. Occasional wrong-word or sound-alike substitutions may occur. Though we review the report and make efforts to correct it, we do recommend that the report be read carefully in proper context to recognize any text inaccuracies. Dictated by: Charissa Molina M.D. on 11/12/2024 at 9:48 Approved by: Charissa Molina M.D. on 11/12/2024 at 9:50
== END ==
PROVIDERS: PCP Family Medicine; Referring Provider Family Medicine; Visit Provider Family Medicine
DX: Z34.83 Encounter for supervision of other normal pregnancy, third trimester (principal); Z3A.38 38 weeks gestation of pregnancy
CPT/HCPCS: 76815

== ENCOUNTER → 2024-11-11 18:04 | Outpatient (ROUT) | payer OTHER, SELFPAY ==
[2024-11-12 15:44] LABS: Strep Grp B PCR NEG for Grp B Strep
== END ==
LOC: LAB 18:05
PROVIDERS: PCP Family Medicine; Visit Provider Family Medicine
DX: Z36.85 Encounter for antenatal screening for Streptococcus B (principal)
CPT/HCPCS: 87653

== ENCOUNTER → 2024-11-18 08:27 | Outpatient (CLI) | payer OTHER, SELFPAY ==
--- NOTE | 2024-11-18 08:31 | DIAB.GDFU ---
Follow-up Gestational Diabetes Assessment Name: Yoko Layton Date: 11/18/24 Time: 830-9a Dx: Gestational Diabetes Provider: Dejuan JODY: 12/04/24 Weeks: 37 Yoko presents for virtual follow-up GDM visit using [facility] Portal. PMH significant for PCOS. Induction planned for 11/27. GONZALO 11.3 WNL wt percentile: >99% Reports FH of larger babies on both sides, mom and dad. Plans to discuss further with OB next week. Stress recently r/t living situation with family dynamics. Dad living next door through the summer. Some stress management with brothers helping with situation and listening ear and coping for her. Walking and visiting mother for stress management. Diet Recall: 10-11a: low carb tortilla with pb, cheese stick with orange or half banana 12p: cheese with half banana or small orange and nuts 1-3p: salad and protein, fruit or small portion carb 4-5p: light snack, cheese stick or nuts 7-9p: meat, salad, and low CHO tortillas or chickpea pasta x 1/2-1c water coffee 2x per week sometimes missing lunch due to naps Anthropometrics: Ht: 67 Wt: 285# 11/11/24 285# 10/28/24 285# 10/14/24 280# 09/30/24 274# 09/16/24 Prepregnancy wt: 270# Self-Monitoring Blood Glucose: Checking FBG and 1 hour pc. Date Pre Post Pre Post Pre Post HS 11/12 92 161 116 / 96 110 117 134 15u NPH 11/14 89 127 135 162 5/6 100 115 156 132 /7 94 122 141 5/8 104 101 121 132 /9 112 Diabetes Medications: 15u NPH HS Pertinent Labs: HgA1c; 4.8% 05/2024 Screen: 169mg/dl H 07/2024 OGTT: 96 H, 199H, 154, 128 09/2024 Nutrition Rx: Carbohydrates: Meal: 45g lunch and dinner; 30g breakfast (min 30g at meals) Snack: 30g Nutrition Diagnosis: Altered nutrition related lab value r/t GDM dx aeb recent OGTT Inadequate CHO intake for r/t limiting CHO for managing BG aeb pt report and diet recall - new Intervention: This participant was very receptive. Provided appropriate educational handouts. Discussed the following topics: HS insulin titration recs: if FBG >95mg/dl may increase by 1-3u Carb recs for GONZALO implications for BG management and WNL results High fiber CHO to add for meals/snacks Goals: Message RD BG in one week Increase HS insulin by 1-2u if FBG >95 over the next couple mornings- in progress INcrease tonight by 2u - new Aim for min 30g CHO at each meal- new Follow-up: GUTIERREZ GONZALEZ follow-up prn. Plans to see OB next week. Milana Pratt RDN, [facility] Certified Diabetes Care and Appellate Court Judge T: [phone] F: [phone] [email or web address] Thank you for this referral
== END ==
LOC: DIET 08:28
PROVIDERS: PCP Family Medicine; Referring Provider Family Medicine
DX: O24.414 Gestational diabetes mellitus in pregnancy, insulin controlled (principal); O99.283 Endocrine, nutritional and metabolic diseases complicating pregnancy, third trimester; E28.2 Polycystic ovarian syndrome; Z3A.37 37 weeks gestation of pregnancy; Z71.3 Dietary counseling and surveillance
CPT/HCPCS: 97803

== ENCOUNTER 2024-11-27 17:55 | Inpatient (IN) | payer OTHER, SELFPAY ==
[2024-11-27 18:12] VITALS: BP 174/70
--- NOTE | 2024-11-27 19:22 | PM.OBHP.IH.1 ---
OB HPI Date/Time Date of admission: 11/27/24 History of Present Condition Chief complaint: Induction JODY Calculator Estimated Delivery Date Method Current WG Current Estimate 12/04/24 LMP (Certain) 39w 0d Other Estimates 12/08/24 Ultrasound #1 38w 3d Estimated Gestational Age (weeks): 39w0d : 1 Narrative: 24 yo G1 presenting at 39w0d for mIOL for GDMA2 on 14u NPH nightly. also complicated by macrosomia wtih EFW of 3783g (99%le) at 36w4d. She is doing well, no complaints. care: good care Dating criteria OB: LMP confirmed by 1st trimester US Ultrasounds: normal 1st trimester US, normal mid trimester US and abnormal US findings ( EFW of 3783g (99%le) at 36w4d) Obstetrical complications: gestational diabetes (GDMA2) Medical complications OB: none Indications Indication for induction OB: gestational diabetes Preadmission Labs Last OB Lab Results: Blood Type O Positive 05/27/24 13:03 Antibody Screen Negative 05/27/24 13:03 Hct 34.1 % (36-46) L 08/28/24 09:45 Hgb 11.6 g/dL (12.0-16.0) L 08/28/24 09:45 Hep Bs Antigen Negative s/c (NEGATIVE) 05/27/24 13:03 Hepatitis C Antibody Negative s/c (NEGATIVE) 05/27/24 13:03 Rubella Antibody 69.3 IU/mL (>15) 05/27/24 13:03 VZV IgG Antibody Non reactive (Non Reactive) 05/27/24 13:03 Glucose 1 Hr 50 gm 169 mg/dL (76-139) H 08/12/24 16:31 Hemoglobin A1c 4.8 % (4.0-6.0) 05/27/24 13:03 Group B Strep (PCR) Neg for grp b strep 11/11/24 17:05 Evaluation Evaluation Baseline heart rate: 150 Variability: Moderate (11-25) monitor accelerations: Present Monitor Decelerations: Absent Contraction Frequency (minutes): 0 Category of Tracing: Reactive Dilation (cm): 0 Effacement (%): 0 Dilation: Closed Effacement: 0-30% station: -3 Position of cervix: mid Consistency: medium Hobbs score: 2 PFSH Medical History Leg fracture (~2004) Surgical History History of removal of skin mole [place] teeth extracted History of hand surgery History of appendectomy Family History Grandmother Breast cancer Brain cancer Lung cancer Diabetes mellitus Hypertension Heavy smoker Mother Hypertension Thyroid disease Menorrhagia Aunt Degenerative disc disease Hypertension Autoimmune disease Grandmother Breast cancer Grandfather Alzheimer's disease Father Hypertension Brother Asthma Brother Psoriasis Social History marital status: unmarried,living together number of children: 0 household members: significant other lives independently: Yes caregiver/support person: No housing: house pets and animals: No education level: college occupational status: employed current occupational exposures/hazards: No special pam needs: No travel history: over 6 months ago seatbelt use: always water heater temp set < 120 deg: Yes working smoke detector in home: Yes fire extinguisher in home: Yes carbon monox detector in home: Yes firearms in home: No do you feel safe at home: Yes second hand exposure: Yes (s/o vapes outside the house) alcohol intake: former substance use type: other during the past year weight has: other well-balanced diet: about half the time daily servings fruits/ve-4 caffeine: Yes (aware of 200mg limit) Type(s) of exercise: walking Meds Home Medications and Allergies Home Medications Medication Instructions Recorded Confirmed Type vitamin-ferrous sulfate tab PO 05/23/24 11/25/24 History 27 mg iron-folic acid 0.8 mg tablet ondansetron 4 mg disintegrating 4 mg PO Q8H PRN nausea and 08/28/24 11/25/24 Rx tablet vomiting #10 tabs alcohol swabs (Alcohol Pads) 1 pad topical QID #100 ea 09/16/24 11/25/24 Rx glucomter #1 ea 09/16/24 11/25/24 Rx glucose test strips #400 ea 09/16/24 11/25/24 Rx lancet #400 ea 09/16/24 11/25/24 Rx sharps container #1 ea 09/16/24 11/25/24 Rx hydroxyzine pamoate 25 mg capsule 25 mg PO BEDTIME PRN for anxiety 09/30/24 11/25/24 Rx (Vistaril) or insomnia #60 caps insulin NPH isoph U-100 human 100 10 unit (0.1 mL) SUBCUT QAM #15 mL 10/13/24 11/25/24 Rx unit/mL (3 mL) subcutaneous pen (Novolin N FlexPen) Pen needles #400 ea 10/14/24 11/25/24 Rx Allergies Allergy/AdvReac Type Severity Reaction Status Date / Time amoxicillin [AMOXICILLIN] Allergy Unknown Rash Verified 11/25/24 16:36 OB Exam Vital signs Blood Pressure: 133/69 Pulse Rate: 95 Assessment and Plan Assessment and Plan Assessment and Plan narrative: 24 yo G1 presenting for mIOL for GDMA2. #mIOL - admit to LD - CBC, TS - PO cytotec 25mcg for first dose followed by 50mcg - intermittent monitoring - GBS negative # GMSA2: - continue NPH 14u nghtly - Glucose checks fasting and 1 hr PP in latent labor # Macrosomnia: EFW of 3783g (99%le) at 36w4d - stools at bedside during delivery due to shoulder dystocia risk Time-Based Coding :: [TOTAL MINUTES] spent with patient and on the chart (including review of chart, obtaining history, exam, reviewing outside data, placing orders, documenting exam and treatment plan, and counseling patient) on [DATE].
[2024-11-27 19:39] VITALS: BP 133/69; PULSE 95
[2024-11-27 19:52] LABS: Add Manual Diff / Slide Review NO; Basophils Absolute Auto 0 /uL (0-100); Basophils Percent Auto 0.2 % (0-2); Eosinophils Absolute Auto 0 /uL (0-450); Eosinophils Percent Auto 0.4 % (2-4); Hematocrit 35.3 % (36-46); Hemoglobin 11.8 g/dL (12.0-16.0); Lymphocytes Absolute Auto 2400 /uL (1100-4500); Lymphocytes Percent Auto 20.1 % (25-40); Mean Corpuscular HGB Conc 33.4 % (30-36); Mean Corpuscular Hemoglobin 27.3 PG (26-34); Mean Corpuscular Volume 81.8 fL (80-100); Monocytes Absolute Auto 700 /uL (0-900); Monocytes Percent Auto 5.9 % (3-14); Neutrophils Absolute Auto 8800 /uL (1500-7000); Neutrophils Percent Auto 73.4 % (50-75); Platelet Count 288 X10^3/uL (150-400); Red Blood Cell Count 4.32 X10^6/uL (4.0-5.2)
[2024-11-27] MEDS: miSOPROStoL 25 MCG TABLET PO (20:15)
[2024-11-27 20:24] LABS: Alanine Aminotransferase 20 IU/L (<35); Albumin 3.4 g/dL (3.5-5.0); Albumin Globulin Ratio 1.1 (1.0-2.8); Alkaline Phosphatase 123 U/L (38-126); Aspartate Aminotransferase 31 IU/L (14-36); BUN Creatinine Ratio 26.5 (6-22); Bilirubin Total 0.6 mg/dL (0.2-1.3); Blood Urea Nitrogen 9 mg/dL (7-17); Calcium 9.3 mg/dL (8.4-10.2); Carbon Dioxide 20 mmol/L (22-32); Chloride 104 mmol/L (98-107); Estimated Glomerular Filt Rate > 60 mL/min (>60); Globulin 3.2 g/dL (1.7-4.1); Glucose 167 mg/dL (70-99); HEMOLYSIS < 15 (0-50); Potassium 3.6 mmol/L (3.4-5.1); Sodium 133 mmol/L (137-145); Total Protein 6.6 g/dL (6.3-8.2)
[2024-11-27] MEDS: INSULIN NPH 100 UNIT/ML 10ML VIAL 20 UNIT SUBCUT (21:59)
[2024-11-27 22:06] LABS: Creatinine Urine Random 89.38 mg/dL; Protein (Total) Urine Random 23 mg/dL (0-12); Protein Creatinine Ratio Urine 0.25 GRAM/24H
[2024-11-28] MEDS: miSOPROStoL 25 MCG TABLET 50 MCG PO ×5 (00:15→16:21)
--- NOTE | 2024-11-28 07:57 | PM.OBPNLAB ---
Date/Time Date Patient Seen: 11/28/24 Time Patient Seen: 07:37 Pain Control Pain control: tolerating well Comments: feeling generalized cramping but no clear contractions at this time. Fasting glucose of 93 this AM Pelvic Exam Dilation (cm): 1 Effacement (%): 50 station: -3 Amniotic membrane status: Intact Contractions Contractions on admission: none Monitor mode: External Contraction frequency (min): 0 Contraction pattern: Irregular Status status: Category l Heart Rate Baseline: 135 Monitor Accelerations: Present Monitor Decelerations: Absent Monitor Variability: Moderate Assessment and Plan Plan: continuous present management Comments: 24 yo G1 presenting for mIOL for GDMA2. Tolerating well, feeling cramping but no discrete contractions. Continue with cytotec induction #mIOL - CBC, TS, CMP - PO cytotec 25mcg for first dose followed by 50mcg - s/p 25, 50, 50 overnight --> continue cytotec - intermittent monitoring - GBS negative # GMSA2: fasting glucose this AM 93 - continue NPH 20u nghtly - Glucose checks fasting and 1 hr PP in latent labor - SSI for elevated glucoses # Macrosomnia: EFW of 3783g (99%le) at 36w4d - stools at bedside during delivery due to shoulder dystocia risk
--- NOTE | 2024-11-28 19:31 | PM.OBPNLAB ---
Date/Time Date Patient Seen: 11/28/24 Time Patient Seen: 07:37 Pain Control Pain control: tolerating well Comments: feeling contractions now, still tolerating well Pelvic Exam Dilation (cm): 1 Effacement (%): 50 station: -3 Amniotic membrane status: Intact Contractions Contractions on admission: none Monitor mode: External Contraction frequency (min): 6 Contraction pattern: Irregular Status status: Category l Heart Rate Baseline: 120 Monitor Accelerations: Present Monitor Decelerations: Absent Monitor Variability: Moderate Assessment and Plan Plan: continuous present management Comments: 24 yo G1 presenting for mIOL for GDMA2. Tolerating well, now feeling discrete contractions #mIOL: pt declining kilgore baloon at this time, will transition to cervadil. In the AM consider pitocin based on exam - s/p 25mcg x1 and 50mcg x5 - Start Cervadil - intermittent monitoring - GBS negative # GMSA2: fasting glucose this AM 93 , 1hr PP <140 all day - continue NPH 20u nghtly - Glucose checks fasting and 1 hr PP in latent labor - SSI for elevated glucoses # Macrosomnia: EFW of 3783g (99%le) at 36w4d - stools at bedside during delivery due to shoulder dystocia risk
[2024-11-28] MEDS: INSULIN NPH 100 UNIT/ML 10ML VIAL 20 UNIT SUBCUT (21:05)
[2024-11-28] MEDS: DINOPROSTONE VAG (CERVIDIL) 10 MG VAG (21:12)
[2024-11-29] MEDS: fentaNYL 100 MCG/2 ML INJ 50 MCG IV ×3 (01:59→15:44)
[2024-11-29] MEDS: LACTATED RINGERS 1,000 ML 100 ML IV ×2 (06:51→08:50)
[2024-11-29] MEDS: OXYTOCIN PREMIX 30 UNIT/500 ML PLAST..BAG IV (06:52)
--- NOTE | 2024-11-29 08:30 | PM.AN.REGBLK ---
Regional Block Pre-procedure Procedure: Continuous Lumbar Epidural for L&D Attending OB provider: Tomasa Zaidi PMH/ROS narrative: , IOL for GDM, macrosomia, morbid obesity requesting epidural. Positive for GDM, GERD and anemia. BMI 46. Patient states she has scoliosis. PSH/Anesthesia history narrative: None Exam narrative: Mall 3, large neck circumference, limited neck extension, good dentition. ASA Class: III Labs: Hct 35.3 % (36-46) L 11/27/24 19:35 Plt Count 288 X10^3/uL (150-400) 11/27/24 19:35 Medications: Current Medications Generic Name Dose Route Start Last Admin Trade Name Freq PRN Reason Stop Dose Admin Carboprost Tromethamine 250 mcg 11/27/24 19:19 Carboprost 250 Mcg/Ml Ampul IM Q90M PRN Bleeding Diphenhydramine HCl 25 mg 11/29/24 08:28 Diphenhydramine 50 Mg/Ml Vial IV Q10M PRN Pruritis Ephedrine Sulfate 10 mg 11/29/24 08:28 Ephedrine 50 Mg/Ml Vial IV Q5M PRN Blood pressure decrease more than 20% of baseline. Fentanyl 50 mcg 11/27/24 19:19 11/29/24 03:14 Fentanyl 100 Mcg/2 Ml Inj IV 50 mcg Q1H PRN Administration Pain, Moderate (4-6) Oxytocin/Lactated Ringer's 30 unit in 500 mls @ 200 mls/hr 11/27/24 19:19 Oxytocin Premix IV CONT PRN Bleeding Protocol Tranexamic Acid 1,000 mg/ 100 mls @ 600 mls/hr 11/27/24 19:19 Sodium Chloride IV NOW PRN Bleeding Oxytocin/Lactated Ringer's 30 unit in 500 mls @ 2 mls/hr 11/27/24 19:30 11/29/24 06:52 Oxytocin Premix IV 2 milliunit/min TITRATE KAYLA 2 mls/hr Administration Protocol 2 MILLIUNIT/MIN FENT 2MCG/ML BUPIV 0.125% EPI 200 mcg in 100 mls @ 10 mls/hr 11/29/24 08:30 Fentanyl/Bupiv/Ns 2mcg/Ml - 0.125% EPIDURAL CONT KAYLA Insulin Human NPH 20 unit 11/27/24 20:30 11/27/24 21:59 Insulin Nph 100 Unit/Ml 10ml Vial SUBCUT 20 unit NOW KAYLA Administration Lidocaine HCl 20 ml 11/27/24 19:19 Lidocaine 1% 20 Ml INJ INTRA-OP PRN Post Delivery Methylergonovine Maleate 0.2 mg 11/27/24 19:19 Methylergonovine 0.2 Mg Tablet PO Q6HR PRN Heavy Bleeding Methylergonovine Maleate 0.2 mg 11/27/24 19:19 Methylergonovine 0.2 Mg/Ml Vial IM NOW PRN Bleeding Mineral Oil 30 ml 11/27/24 19:19 Mineral Oil 30 Ml Udc TOP PRN PRN Version Misoprostol 800 mcg 11/27/24 19:19 Misoprostol 200 Mcg Tablet VA NOW PRN Bleeding Misoprostol 400 mcg 11/27/24 19:19 Misoprostol 200 Mcg Tablet SL NOW PRN Bleeding Misoprostol 50 mcg 11/27/24 19:19 11/28/24 16:21 Misoprostol 25 Mcg Tablet PO 50 mcg Q4H PRN Administration cervical ripening Nalbuphine HCl 2.5 mg 11/29/24 08:28 Nalbuphine 20 Mg/Ml Ampul IV Q10M PRN Pruritis Naloxone HCl 0.2 mg 11/27/24 19:19 Naloxone 0.4 Mg/Ml Vial IV Q2MIN PRN Opiate Reversal Oxytocin 10 unit 11/27/24 19:19 Oxytocin 10 Unit/Ml Vial IM NOW PRN Bleeding Allergies: Allergies Allergy/AdvReac Type Severity Reaction Status Date / Time amoxicillin [AMOXICILLIN] Allergy Unknown Rash Verified 11/25/24 16:36 Procedure Insertion date: 11/29/24 Insertion time: 07:54 Prep/Local: 1% lidocaine (chlorhex skin prep, dry x 3 min) Interspace: L4-5 Patient position: sitting Needle: 17 gauge Tuohy Loss of resistance with: saline TODD at (cm): 8 Catheter placed at SKIN (cm): 15 Catheter in SPACE (cm): 7 Sensory level: T10 Insertion: No CSF, No Blood, No Paresthesia with insertion, No Paresthesia with injection and No Test dose reaction Initial Medications TEST DOSE time: 08:10 BOLUS DOSE time: 08:23 BOLUS DOSE (mL): 7 BOLUS DOSE med: other (pump solution) Infusion Initial rate (mL/hr): 10 Subsequent interventions: 11:05 Patient having LBP. 10cc 2% lido bolus, incr rate to 12/hr, po Tylenol. Suggested hot/cold/massage. Changed position 12:35 Patient ready to start pushing. 10cc 2% lido bolus, position change 14:15 Patient requesting bolus, 10cc 2% lido Post-procedure Anesthesia date START: 11/29/24 Anesthesia time START: 07:54 Anesthesia date END: 11/29/24 Anesthesia time END: 15:30 Post-procedure Anesthesia Assessment: Yes CV function: HR/BP stable, Yes Resp function: RR/sat/airway adequate, Yes Post-op hydration adequate, Yes Pain control adequate, Yes Nausea & vomiting absent, Yes Temperature > 36 C, Yes Mental status appropriate and Yes Anesthesia complications
[2024-11-29] MEDS: ACETAMINOPHEN 325 MG TABLET 975 MG PO (11:19)
[2024-11-29] MEDS: FENT 2MCG/ML BUPIV 0.125% EPI 200 MCG/100 ML PLAST..BAG 10 MCG EPIDURAL (13:18)
[2024-11-29] MEDS: LIDOCAINE 1% 20 ML INJ (15:48)
--- NOTE | 2024-11-29 16:09 | P.PCNOB_ITS ---
Events: Gestational Diabetes (GDMA2) Labor & Delivery Delivery date: 11/29/24 Delivery Time: 15:30 Intrapartal Events: None Cervical ripening method: per misoprostal protocol Delivery augmentation: pitocin Delivery monitor: external FHT Route of delivery: L&D Laceration Description: Perineal - 2nd Degree and Labial Delivery repair: vicryl Estimated blood loss (mL): 350 Anesthesia Type: Epidural Narrative: PROCEDURE: 24yo G1 at 39w2d presented for mIOL for GDMA2 in [facility] ([facility] and was admitted to Labor and Delivery. She was started on Po cytotec which she continued for 24 hours then had Cervadil placed. This was removed after 8 hours due to concern for SROM, with clear fluid. She was then started on Pitocin augmentation. Pain was controlled with an epidural. The patient progressed through the 2nd stage and delivered a viable female with APGARs 8/9 at 15:30 out of BLANK. A nuchal arm was present. The cord was cut and clamped after 60 second delay. The placenta delivered with gentle cord traction, and appeared complete. The perineum and vagina were inspected with a 2nd degree perineal and a shallow left labial laceration Needle and sponge counts were correct.? The vagina was inspected and no items were left in situ. PREPROCEDURE DIAGNOSIS: Intrauterine at 39w2d GDMA2 EFW of 99%ile GBS neg RH positive POSTPROCEDURE DIAGNOSIS: Intrauterine at 39w2d, delivered Same as preprocedure Plan for aftercare: Routine care
[2024-11-29] MEDS: IBUPROFEN 600 MG TABLET PO (17:09)
[2024-11-29] MEDS: ACETAMINOPHEN 325 MG TABLET 650 MG PO (17:10)
[2024-11-30] MEDS: ACETAMINOPHEN 325 MG TABLET 650 MG PO ×3 (01:10→15:00)
[2024-11-30] MEDS: IBUPROFEN 600 MG TABLET PO ×3 (01:10→15:00)
[2024-11-30] MEDS: PRENATAL VIT,CALC/IRON/FOLIC 1 TABLET 1 TAB PO (08:13)
--- NOTE | 2024-11-30 13:32 | P.DS_ITS ---
Discharge Providers Provider Date of admission: 11/27/24 17:55 Discharge Date: 11/30/24 Primary care physician: Tomasa Zaidi MD Consults: 11/30/24 16:27 Consult to [facility] Routine Comment: Discharge provider: Tomasa Zaidi MD Summary Hospital Course Date Patient Seen: 11/30/24 Time Patient Seen: 13:00 Hospital Course: 24yo G1 at 39w2d presented for mIOL for GDMA2 in insulin and was admitted to Labor and Delivery. She was started on Po cytotec which she continued for 24 hours then had Cervadil placed. This was removed after 8 hours due to concern for SROM, with clear fluid. She was then started on Pitocin augmentation. Pain was controlled with an epidural. The patient progressed through the 2nd stage and delivered a viable female with APGARs 8/9 at 15:30 out of BLANK. A nuchal arm was present. The cord was cut and clamped after 60 second delay. The placenta delivered with gentle cord traction, and appeared complete. The perineum and vagina were inspected with a 2nd degree perineal and a shallow left labial laceration , pain was controlled and bleeding was typical. She is ambulating and voiding without difficulty. She is well and has met wtih Peripartum Data Delivery Method: Natural Vaginal Laceration Description: Perineal - 2nd Degree and Labial complications: none Time Spent with Patient Time attestation: Total time spent providing and/or coordinating discharge services: Time spent: Less than 30 minutes Objective Labs 11/27/24 19:35 11/27/24 19:35 Exam Vital Signs (past 8 hours): BP: 122/67 P- 96bpm SpO2-95% Narrative Exam Narrative: GEN: Healthy appearing, well-developed, NAD. PSYCH: Good Judgment. AOx3. Normal memory, mood, and affect HEENT: -Head: NC/AT -Eyes: No discharge or redness CV: warm and well perfused LUNGS: breathing comfortably on RA SKIN: Warm, well perfused. No skin rashes or abnormal lesions MSK: Normal gait. No deformities NEURO: Ambulating with no limitations. No focal deficits Discharge Plan Discharge Plan Patient Disposition: Home Discharge orders & Medications Prescriptions: Continued vit-ferrous sulfat-FA 27 mg iron- 0.8 mg tablet See Rx Instructions .ROUTE .COMPLEX Rx Instructions: Take as directed Discontinued hydroxyzine pamoate [Vistaril] 25 mg capsule 25 mg PO BEDTIME PRN (Reason: for anxiety or insomnia) Qty: 60 0RF ondansetron 4 mg tablet,disintegrating 4 mg PO Q8H PRN (Reason: nausea and vomiting) Qty: 10 0RF No Action (DME) sharps container See Rx Instructions .ROUTE .MEDSUPPLY Qty: 1 1RF Rx Instructions: for glucose supplies (DME) glucose test strips See Rx Instructions .ROUTE .MEDSUPPLY Qty: 400 0RF Rx Instructions: to test 4 times daily (DME) lancet See Rx Instructions .ROUTE .MEDSUPPLY Qty: 400 0RF Rx Instructions: to test glucose 4 times daily (DME) glucomter See Rx Instructions .Route .MEDSUPPLY Qty: 1 0RF Rx Instructions: As directed (DME) Pen needles See Rx Instructions .ROUTE .MEDSUPPLY Qty: 400 0RF Rx Instructions: for administration of NPH Follow up/Referrals: Tomasa Zaidi MD [Primary Care Provider] - Visit Report/Discharge Packet Instructions: Labor and Delivery, Vaginal Stand Alone Forms: Patient Portal/API, Stroke Signs & Symptoms Discharge Data Primary Care Provider: Tomasa Zaidi Discharges patient from system. Discharge Date/Time: 11/30/24 16:30
[2024-11-30] MEDS: DERMOPLAST SPRAY 20% 60 ML 1 SPRAY TOP (15:01)
[2024-11-30] MEDS: WITCH HAZEL/GLYCERIN PADS 1 EACH TOP (15:01)
== END 2024-11-30 16:30 | disposition home or self-care (01) | DRG 807 ==
PROVIDERS: Admitting Provider Family Medicine; PCP Family Medicine; Referring Provider Family Medicine; Visit Provider Family Medicine
DX: O24.424 Gestational diabetes mellitus in childbirth, insulin controlled (principal); Z37.0 Single live birth; Z3A.39 39 weeks gestation of pregnancy; O36.63X0 Maternal care for excessive fetal growth, third trimester, not applicable or unspecified; O70.1 Second degree perineal laceration during delivery
CPT/HCPCS: 36415; 59050; 59200; 59400; 80053; 82570; 84156; 85025; 86850; 86900; 86901; G0379; J2590; J3010

== ENCOUNTER → 2024-12-08 08:45 | Outpatient (CLI) | payer OTHER, SELFPAY ==
--- NOTE | 2024-12-08 08:45 | DI.US.S_ITS ---
PROCEDURE: US PELVIC COMPLETE INDICATIONS: assess for retained products at 8d PP TECHNIQUE: Real-time scanning was performed of the pelvic organs, with image documentation. Additional endovaginal scanning was necessary due to incomplete visualization of the adnexal and endometrial structures by transabdominal scanning. COMPARISON: None. FINDINGS: Uterus: 13.8 x 11.2 x 7.9 cm. Anteverted positioning. Endometrium is thickened at 25 mm. No significant vascularity however. Ovaries: Mildly prominent right ovary measuring 11 cc. Unremarkable left ovary measuring 5 cc. Other: No pathologic free fluid IMPRESSION: Thickened endometrium likely related to state. No focal hypervascularity to suggest retained products. Consider continued follow-up to assess for expected thinning. Dictated by: Jay Aj M.D. on 12/08/2024 at 9:29 Approved by: Jay Aj M.D. on 12/08/2024 at 9:31
== END ==
PROVIDERS: PCP Family Medicine; Referring Provider Family Medicine; Visit Provider Family Medicine
DX: O72.1 Other immediate postpartum hemorrhage (principal)
CPT/HCPCS: 76856